=== PATIENT | female | born 1975 | race Caucasian/White ===

== ENCOUNTER 2024-05-15 23:58 | Emergency (ER) | payer MEDICAID ==
[2024-05-16 00:17] VITALS: BP 168/100; O2SAT 100
[2024-05-16] MEDS ORDERED: LORazepam 0.5 MG TABLET PO STA (00:54)
--- NOTE | 2024-05-16 00:54 | ED Physician Documentation ---
History of Present Illness - Stated complaint Stated Complaint: MED REFILL - Chief complaint Chief Complaint: General - History obtained from History obtained from: Patient - Additonal information Additional information: 48-year-old female presents for possible early benzodiazepine withdrawal. Patient has been on alprazolam twice daily for nearly 20 years and recently moved to [facility] from [place]. She states that several days ago she ran out of her medication, and [place] get a refill from her primary doctor. She has a new primary care doctor appointment in 3 days, but she states she feels her anxiety is getting much worse and feels like she may be going into early withdrawals. States that she has been prescribed 2 mg of alprazolam twice daily, but has slowly tapered to 1.5 mg twice daily Review of Systems Constitutional: denies: Fever, Chills Cardiac: denies: Chest pain / pressure, Palpitations, Calf pain Respiratory: denies: Dyspnea, Cough, Wheezing Neurologic: denies: Generalized weakness, Focal weakness, Numbness Psychiatric: reports: Anxiety. denies: Depressed, Suicidal, Homicidal PD PAST MEDICAL HISTORY - Past Medical History Past Medical History: No - Past Surgical History Past Surgical History: No - Present Medications Home Medications: Ambulatory Orders Medication Instructions Recorded Confirmed Alprazolam [Xanax] 2 mg PO BID #7 tablet 05/16/24 - Allergies Allergies/Adverse Reactions: Allergies Allergy/AdvReac Type Severity Reaction Status Date / Time No Known Drug Allergies Allergy Verified 05/16/24 00:08 - Social History Does the pt smoke?: No Smoking Status: Never smoker Does the pt drink ETOH?: No Does the pt have substance abuse?: No - Immunizations Immunizations are current?: No - POLST Patient has POLST: No PD ED PE NORMAL - Vitals Vital signs reviewed: Yes - General General: Alert and oriented X 3, Well developed/nourished - Cardiac Cardiac: RRR, Strong equal pulses - Respiratory Respiratory: No respiratory distress - Derm Derm: Normal color, Warm and dry, No rash - Extremities Extremities: No deformity, No tenderness to palpate - Neuro Neuro: Alert and oriented X 3, 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 She did provide a bottle of her medication prescription that shows she has been prescribed 2 mg twice daily and is consistent with the reported time that she ran out of this medication. A very temporary bridge prescription sent to pharmacy of choice, patient strongly advised to keep her primary appointment in 3 days as scheduled. Departure - Departure Disposition: 01 Home, Self Care Clinical Impression: Chronic prescription benzodiazepine use Condition: Stable Instructions: ED Withdrawal Benzodiazepine Prescriptions: Alprazolam [Xanax] 2 mg PO BID #7 tablet Comments: Your medication has been sent to the [facility] in [place]. Please make sure that you keep your primary care appointment on Sunday as scheduled. Forms: PCP List Discharge Date/Time: 05/16/24 01:09
[2024-05-16] MEDS: ALPRAZolam 0.25 MG TABLET PO STA (01:07)
== END 2024-05-16 01:09 | disposition home or self-care (01) ==
LOC: ED 23:58
DX: F19.90 Other psychoactive substance use, unspecified, uncomplicated (principal); F41.9 Anxiety disorder, unspecified; Z79.899 Other long term (current) drug therapy
CPT/HCPCS: 99281; 99282; A9270